=== PATIENT | male | born 1965 | race Two or more races ===

== ENCOUNTER 2017-04-18 07:54 | Emergency (ER) | payer BC, OTHER ==
[2017-04-18] MEDS ORDERED: oxyCODONE SR TAB(*) 15 MG TAB.SR PO ONE (11:01)
[2017-04-18] MEDS ORDERED: Aspirin EC Low Dose* 81 MG TAB.EC PO ONE (11:01)
[2017-04-18] MEDS ORDERED: Acetaminophen TAB* 325 MG PO ONE (11:01)
[2017-04-18] MEDS ORDERED: oxyCODONE TAB* 5 MG TAB ONE (11:22)
[2017-04-18] MEDS ORDERED: oxyCODONE TAB* 5 MG TAB PO ONE (11:28)
[2017-04-18] MEDS ORDERED: Lidocaine 2% JELLY* 10 ML JELLY TOPICAL ONE (14:19)
[2017-04-18] MEDS ORDERED: Bacitracin OINTMENT* 1 TUBE TOPICAL ONE (14:20)
--- NOTE | 2017-04-18 14:29 | ED ---
Ashish Real Angela, scribed for Anand Marcus MD on 04/18/17 at 1039 . Burn - HPI Summary HPI Summary: This pt is a 51 y/o male [place] presenting to [facility] c/o spilling hot tea on his genitals. Pt reports he was taking oxycodone and Tylenol this morning with a cup of tea. Pt states he spilled boiling tea on his genitals. Pt denies any other haney. Pt had a left knee replacement in March and is concerned for an infection. Per triage note, pt took 5 mg oxycodone which alleviated much of his pain. - History of Current Complaint Chief Complaint: EDBurnSmokeInh Stated Complaint: HANEY Hx Obtained From: Patient Occurred: Hours Ago Length of Exposure: Hours Current Severity: Moderate Pain Intensity: 4 Pain Scale Used: 0-10 Numeric Location: Other - genitals Character: Scald - hot water - Allergy/Home Medications Allergies/Adverse Reactions: Allergies Allergy/AdvReac Type Severity Reaction Status Date / Time Codeine Allergy Unknown Verified 04/18/17 08:05 Reaction Details Morphine Allergy DOES NOT Verified 09/26/16 07:41 LIKE THE IMPACT IT DOES TO HIS BRAIN Home Medications: Home Medications Acetaminophen [Acetaminophen Extra Stren] 1,000 mg PO TID PRN 04/18/17 [History Confirmed 04/18/17] Ascorbic Acid TAB* [Vitamin C TAB*] 1,000 mg PO DAILY 04/18/17 [History Confirmed 04/18/17] Aspirin EC TAB* [Ecotrin EC TAB*] 325 mg PO BID 04/18/17 [History Confirmed 07/04] Docusate CAP* [Colace Cap*] 200 mg PO BEDTIME 04/18/17 [History Confirmed ] Fish Oil-Cholecalciferol [Fish Oil + D3 6579-6465 mg-Unit] 1 cap PO DAILY [History Confirmed 04/18/17] Flaxseed (Linseed) [Flaxseed Oil] 1,000 mg PO DAILY 04/18/17 [History Confirmed 04/18/17] Gabapentin CAP(*) [Neurontin 300 CAP(*)] 600 mg PO QPM 04/18/17 [History Confirmed 04/18/17] Lactobacillus Acidophilu (GG)* [Culturelle*] 1 cap PO DAILY 04/18/17 [History Confirmed 04/18/17] Levothyroxine TAB* [Synthroid 137 MCG TAB*] 137 mcg PO QAM 04/18/17 [History Confirmed 04/18/17] Methocarbamol TAB* [Robaxin 500 MG TAB*] 750 mg PO TID PRN 04/18/17 [History Confirmed 04/18/17] Senna TAB* [Senokot TAB*] 2 tab PO DAILY 04/18/17 [History Confirmed 04/18/17] Tamsulosin CAP* [Flomax CAP*] 0.4 mg PO QPM 04/18/17 [History Confirmed 04/18/17 ] celeCOXIB CAP* [Celebrex CAP*] 200 mg PO DAILY 04/18/17 [History Confirmed 04/18] oxyCODONE TAB* [Roxycodone TAB 5 mg*] 5 - 10 mg PO Q4H PRN 04/18/17 [History Confirmed 04/18/17] PMH/Surg Hx/FS Hx/Imm Hx Endocrine/Hematology History: Denies: Hx Diabetes Cardiovascular History: Denies: Hx Congestive Heart Failure, Hx Hypertension, Hx Pacemaker/ICD History: Denies: Hx Dialysis, Hx Renal Disease Sensory History: Denies: Hx Hearing Aid Psychiatric History: Denies: Hx Panic Disorder - Cancer History Cancer Type, Location and Year: Thyroid - Surgical History Surgery Procedure, Year, and Place: 1967 APPENDIX. 1993 PEPTOID CARCINOMA- THYROID GLAND/8 LYMPH NODES RIGHT SIDE OF NECK REMOVED. 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 2005 CATARACTS BILATERAL EYES Infectious Disease History: Yes Infectious Disease History: Denies: Traveled Outside the [place] in Last 30 Days - Family History Known Family History: Positive: Other - Father: ulcers - Social History Alcohol Use: Rare Substance Use Type: Reports: Marijuana Substance Use Comment - Amount & Last Used: Pt tried a brownie for the first time yesterday, without good effect. Smoking Status (MU): Never Smoked Tobacco Review of Systems Negative: Fever, Chills Positive: pain - genitals Positive: Other - s/p left knee replacement Positive: Other - burn on genitals All Other Systems Reviewed And Are Negative: Yes Physical Exam - Summary Physical Exam Summary: Appearance: Well-appearing, Well-nourished Skin: Warm. No circumferential haney noted. Likely first degree haney without blistering or eschar. Normal blanching and capillary refill of all tissues. Eyes: Normal ENT: Normal Neck: Supple, nontender Respiratory: Clear to auscultation Cardiovascular: Normal Abdomen: Soft, nontender. Bowel: Present : Normal urination, no scrotal involvement, no perineal involvement. Musculoskeletal: Normal, Strength/ROM Intact Neurological: Normal, A&Ox3 Psychiatric: Normal Triage Information Reviewed: Yes Vital Signs On Initial Exam: Initial Vitals Temp Pulse Resp BP Pulse Ox 98.2 F 75 16 136/95 99 04/18/17 08:00 04/18/17 08:00 04/18/17 08:00 04/18/17 08:00 04/18/17 08:00 Vital Signs Reviewed: Yes Burn Calculation - [place] Formula for Fluid Resuscitation Weight: 71.668 kg 24 -Hour Fluid Replacement: 0.0 Diagnostics - Vital Signs Vital Signs Temp Pulse Resp BP Pulse Ox 04/18/17 08:08 76 99 04/18/17 08:00 98.2 F 75 16 136/95 99 - Laboratory Lab Statement: Any lab studies that have been ordered have been reviewed, and results considered in the medical decision making process. Re-Evaluation - Re-Evaluation First Eval Change: Improved - feels better after meds and ice Burn Course/Dx - Course Assessment/Plan: I spoke with urologist menswear salesperson Dr. Fleming who agreed with plan for discharge with [facility]. <5% TBSA, all first degree, minimal second degree haney on penis. urinating normally - Diagnoses Provider Diagnosis: Burn - Provider Notifications Discussed Care Of Patient With: Frank Fleming Time Discussed With Above Provider: 11:32 Instructed by Provider To: Other - I discussed the pt's case with Dr. Fleming. Discharge - Discharge Plan Condition: Improved Disposition: HOME Prescriptions: Bacitracin (Topical) [Hm Bacitracin] 500 unit EX BID #1 tube Lidocaine 2% JELLY* 1 applic TOPICAL DAILY #1 tube Patient Education Materials: Lidocaine (On the skin), Antibacterial Combination (On the skin), Superficial Burn (ED) Referrals: Jose Antonio Schneider MD [Primary Care Provider] - Frnak Fleming MD [Medical Doctor] - Additional Instructions: PLEASE MAKE AN APPOINTMENT FIRST THING IN THE MORNING TO BE SEEN BY DR. FLEMING WITHIN 1-2 WEEKS PLEASE RETURN TO THE EMERGENCY ROOM IF YOU HAVE ANY WORSENING OR CONCERNING SYMPTOMS The documentation as recorded by the Ashish braga Angela accurately reflects the service I personally performed and the decisions made by me, Anand Marcus MD.
[2017-04-18] MEDS ORDERED: Lidocaine 2% JELLY* 6 ML JELLY TOPICAL ONE (14:30)
[2017-04-18 14:33] VITALS: BP 130/74
== END 2017-04-18 14:53 | disposition home or self-care (01) ==
LOC: ED 07:54
DX: T21.26XA Burn of second degree of male genital region, initial encounter (principal); T31.0 Burns involving less than 10% of body surface; X10.0XXA Contact with hot drinks, initial encounter; Y93.9 Activity, unspecified; Y92.9 Unspecified place or not applicable; Z90.89 Acquired absence of other organs; Z96.652 Presence of left artificial knee joint; Z98.42 Cataract extraction status, left eye; Z98.41 Cataract extraction status, right eye; Z88.5 Allergy status to narcotic agent
CPT/HCPCS: 99282; A9270-GY

== ENCOUNTER 2020-06-02 20:13 | Inpatient (IN) ==
[2020-06-02] MEDS ORDERED: Lidocaine 2% JELLY 10 ML JELLY TOPICAL ONE (21:35)
[2020-06-02] MEDS ORDERED: Lidocaine 2% JELLY 6 ML TOPICAL ONE (21:38)
[2020-06-02] MEDS ORDERED: NS 0.9% 1000 ml BAG 2,000 ML IV ONE (22:04)
[2020-06-02] MEDS ORDERED: Ondansetron 4 mg VIAL 2 MG/ML 2 ml VIAL IV PRN (22:11)
[2020-06-02 22:14] LABS: Urine Red Blood Cell 3+(>10/hpf) (Absent)
[2020-06-02 22:15] LABS: Urine Appearance Turbid; Urine Color Red; Urine Specific Gravity 1.021 (1.010-1.030)
[2020-06-02 23:19] LABS: ABS Lymphocytes 0.9 10^3/ul (1.0-4.8); ABS Neutrophils 10.2 10^3/ul (1.5-7.7); Hematocrit 43 % (42-52); Hemoglobin 14.5 g/dL (14.0-18.0); Lymphocyte % 7.4 %; Mean Corpuscular HGB Conc 34 g/dL (31-36); Mean Corpuscular Hemoglobin 30 pg (27-31); Mean Corpuscular Volume 87 fL (80-94); Platelet Count 221 10^3/uL (150-450); Red Blood Count 4.91 10^6 /uL (4.18-5.48); Red Cell Distribution Width 14 % (10-15); White Blood Count 12.1 10^3/uL (3.5-10.8)
[2020-06-02] MEDS: oxyCODONE/Acetamin 5/325 mg TAB PO PRN (23:30)
[2020-06-03] MEDS: Lactated Ringers 1000 ml BAG 1,000 ML IV SCH ×2 (01:41→09:20)
[2020-06-03 06:32] LABS: ABS Lymphocytes 1.9 10^3/ul (1.0-4.8); ABS Monocytes 0.9 10^3/ul (0-0.8); ABS Neutrophils 7.8 10^3/ul (1.5-7.7); Eosinophil % 0.4 %; Hematocrit 43 % (42-52); Hemoglobin 14.1 g/dL (14.0-18.0); Lymphocyte % 17.5 %; Mean Corpuscular HGB Conc 33 g/dL (31-36); Mean Corpuscular Hemoglobin 29 pg (27-31); Mean Corpuscular Volume 88 fL (80-94); Mean Platelet Volume 9.5 fL (7.4-10.4); Platelet Count 153 10^3/uL (150-450); Red Blood Count 4.82 10^6 /uL (4.18-5.48); Red Cell Distribution Width 14 % (10-15); White Blood Count 10.7 10^3/uL (3.5-10.8)
[2020-06-03 06:59] LABS: BUN/Creatinine Ratio 13.4 (8-20); Calcium 8.6 mg/dL (8.6-10.3); EGFR African American 117.6 (>60); EGFR Non-African American 97.2 (>60); Potassium 3.8 mmol/L (3.5-5.0)
[2020-06-03] MEDS: oxyCODONE/Acetamin 5/325 mg TAB PO PRN (07:35)
[2020-06-03 11:59] VITALS: BP 117/65
== END 2020-06-03 14:33 | disposition home or self-care (01) | DRG 813 ==
LOC: ED 20:13 → SSU 22:11
PROVIDERS: ADMIT Surgery; ATTEND Surgery